=== PATIENT | male | born 1930 | race Caucasian/White ===

== ENCOUNTER → 2016-12-07 | Outpatient (CLI) | payer MEDICARE ==
--- NOTE | 2016-12-07 14:57 | RADIOLOGY REPORT (SQ) ---
EXAM DESCRIPTION: CHEST PA/LATERAL COMPLETED DATE/TIME: 12/07/2016 12:43 pm REASON FOR STUDY: COUGH COMPARISON: None. EXAM PARAMETERS: NUMBER OF VIEWS: two views TECHNIQUE: Digital Frontal and Lateral radiographic views of the chest acquired. RADIATION DOSE: NA LIMITATIONS: none FINDINGS: LUNGS AND PLEURA: No opacities, masses or pneumothorax. No pleural effusion. MEDIASTINUM AND HILAR STRUCTURES: No masses or contour abnormalities. HEART AND VASCULAR STRUCTURES: Heart normal size. No evidence for failure. BONES: No acute findings. HARDWARE: None in the chest. OTHER: No other significant finding. IMPRESSION: NO SIGNIFICANT RADIOGRAPHIC FINDING IN THE CHEST. TECHNICAL DOCUMENTATION: JOB ID: [id number] [employer]- All Rights Reserved
== END ==
LOC: OD 12:27
PROVIDERS: ATTEND Family Medicine
DX: R05 Cough (principal)
CPT/HCPCS: 71020

== ENCOUNTER → 2017-11-29 | Day surgery (SDC) | payer MEDICARE, OTHER ==
[~2017-11-29] MED LIST: BETAMET ACET/BETAMET NA INJ 6 MG/1 ML INJ PRN; BUPIVACAINE HCL 0.5 % INJ/PF 30 ML SDV ONE; LIDOCAINE 1% INJ-PF (10 MG/ML) 30 ML SDV ONE
--- NOTE | 2017-11-29 16:27 | RADIOLOGY REPORT (SQ) ---
EXAM DESCRIPTION: INJ EPI/SUBARCH/ C/T W/O CATH COMPLETED DATE/TIME: 11/29/2017 4:05 pm REASON FOR STUDY: RADICULOPATHY, LUMBAR REGION M54.16 RADICULOPATHY, LUMBAR REGION COMPARISON: Lumbar myelogram and postmyelogram CT 10/26/2017 FLUOROSCOPY TIME: 1.3 minutes 6 digital lumbar fluoroscopic images saved to PACS. TECHNIQUE: Risks and benefits of the procedure were discussed with the patient, and informed consent was obtained. After fluoroscopic localization, sterile skin prep with Betadine, and local lidocaine for skin and deep tissue anesthesia, a 25-gauge needle was used to acces the dorsal lumbar epidural s pace via left paracentral approach at the L2-3 level. At this point, 0.5 mL of Omnipaque-300 nonion ic contrast was injected to confirm needle placement in the epidural space. Subsequently, 6 mg of Ce lestone and 1 ml of dilute Marcaine was injected without complication. LIMITATIONS: None. FINDINGS: PREPROCEDURE PAIN LEVEL: 2/10. POSTPROCEDURE PAIN LEVEL: 2/10. IMPRESSION: TECHNICALLY SUCCESSFUL LUMBAR EPIDURAL STEROID INJECTION ABOVE. This is the 1st lumbar epidural steroid injection. Patient may have a 2nd injection in 2 to 3 weeks COMMENT: Patient medication list reviewed:Yes- Quality ID# [id number]:Eligible professional attests to docu menting in the medical record they obtained, updated, or reviewed the patient's current medications.. Patient felt baby aspirin for 7 days, ginkgo supplements for 7 days. Quality ID [id number]: Final reports for procedures using fluoroscopy that document radiation exposure whitley darian, or exposure time and number of fluorographic images (if radiation exposure indices are not avail able) TECHNICAL DOCUMENTATION: JOB ID: [id number] [employer]- All Rights Reserved Reading location - IP/workstation name: [email or web address]
== END ==
LOC: RAD 13:22
PROVIDERS: ATTEND Physician Assistant
DX: M54.16 Radiculopathy, lumbar region (principal)
CPT/HCPCS: 62321; J3490 ×2; J0702

== ENCOUNTER 2019-09-19 14:26 | Emergency (ER) | payer MEDICARE, OTHER ==
--- NOTE | 2019-09-19 17:45 | RADIOLOGY REPORT (SQ) ---
EXAM DESCRIPTION: CHEST SINGLE VIEW IMAGES COMPLETED DATE/TIME: 09/19/2019 4:28 pm REASON FOR STUDY: shortness of breath. COMPARISON: None. EXAM PARAMETERS: NUMBER OF VIEWS: One view. TECHNIQUE: Single frontal radiographic view of the chest acquired. RADIATION DOSE: NA LIMITATIONS: None. FINDINGS: LUNGS AND PLEURA: There are subtle peripheral opacities in both lungs. Lungs are hyperinf lated. No focal confluent consolidation. Possible small right effusion. No pneumothorax. MEDIASTINUM AND HILAR STRUCTURES: No masses. Contour normal. HEART AND VASCULAR STRUCTURES: Heart normal in size. Normal vasculature. BONES: No acute findings. HARDWARE: None in the chest. OTHER: No other significant finding. IMPRESSION: Patchy peripheral opacities may represent infectious/inflammatory process. TECHNICAL DOCUMENTATION: JOB ID: [id number] [employer]- All Rights Reserved Reading location - IP/workstation name: [email or web address]
--- NOTE | 2019-09-19 18:21 | ER Document Report ---
ED General - General Chief Complaint: Shortness Of Breath Stated Complaint: SHORT OF BREATH Time Seen by Provider: 09/19/19 17:46 Primary Care Provider: FILIBERTO HE MD [Primary Care Provider] - Follow up as needed TRAVEL OUTSIDE OF THE [place] IN LAST 30 DAYS: No - HPI Notes: Patient is a very pleasant 88-year-old male who presents to the emergency department for evaluation of difficulty breathing. He states last week he got a new exercise bike. He has been able to ride on it for an hour at a time, multiple times. He states the day after getting his exercise bike, he woke up suddenly short of breath in the middle of the night. It happened at around midnight, he has been unable to get to sleep. He really had not noticed that it happened more when he laid down, but states that it seems to be happening every night since then. He denies any chest tightness. He has a chronic cough, that he states is no different. He denies any fevers or chills. No nausea or vom iting. He is eating and drinking normally. Normal bowel movements. He denies any abdominal pain. I asked him about the edema in his legs, he states that he had not noticed. He notes that his blood pressure has also been elevated this week. He had a history of high blood pressure, but his controlled it with diet and exercise. As of late it has not been working. - Related Data Allergies/Adverse Reactions: No Known Allergies Allergy (Verified 12/15/13 09:37) Home Medications: Aspirin, multivitamin Past Medical History - General Information source: Patient - Social History Smoking Status: Former Smoker Chew tobacco use (# tins/day): No Frequency of alcohol use: None Drug Abuse: None Family History: Reviewed & Not Pertinent - Past Medical History Cardiac Medical History: Denies: Hx Coronary Artery Disease, Hx Heart Attack, Hx Hypertension Pulmonary Medical History: Denies: Hx Asthma, Hx Bronchitis, Hx COPD, Hx Pneumonia Neurological Medical History: Denies: Hx Cerebrovascular Accident, Hx Seizures Musculoskeletal Medical History: Reports Hx Arthritis - Immunizations Hx Diphtheria, Pertussis, Tetanus Vaccination: Yes Review of Systems - Review of Systems Cardiovascular: See HPI Musculoskeletal: See HPI -: Yes All other systems reviewed and negative Physical Exam - Vital signs Vitals: Temp Pulse Resp BP Pulse Ox 98.3 F 73 18 156/95 H 96 06/26/20 14:48 09/19/19 14:48 09/19/19 14:48 09/19/19 14:48 09/19/19 14:48 - Notes Notes: This is a very pleasant 88-year-old male who appears younger than his stated age, no acute distress. When sitting upright, he shows no signs of increased work of breathing or conversational dyspnea. I did lay the patient supine. His oxygenation remained stable, but his respiratory rate increased to approximately 26. No other signs of increased work of breathing besides the tachypnea. Vital signs reviewed, please refer to chart. Head is normocephalic, atraumatic. Pupils equal round, reactive to light. Neck is supple without meningismus. Heart is regular rate and rhythm. Lungs are clear to auscultation bilaterally. Abdomen is soft, nontender, normoactive bowel sounds throughout. Extremities without cyanosis, clubbing. He does have 3+ pitting edema pretibially bilaterally. Posterior calves are nontender. Peripheral pulses are equal. Skin is warm and dry. Patient is awake, alert, neurological exam is nonfocal. Course - Re-evaluation Re-evalutation: 09/19/19 18:20 Patient presents to the emergency department for evaluation. On arrival here he is mildly hypertensive, but oxygenation was good. He had a chest x-ray which was interpreted by radiology as showing multi focal areas that could be consistent with a pneumonia. His clinical presentation, however, is not entir macy consistent with that. He already has a COVID test pending at this time. I am more concerned about the possibility of congestive heart failure in this 88-year-old male with orthopnea and PND. I did order congestive heart failure work-up. Patient is amenable to this plan. He is stable, we will continue to monitor. 09/19/19 20:22 Patient's clinical findings and work-up here do suggest congestive heart failure, new onset. His chest x-ray interpretation does not clinically make sense of his picture. I do not suspect pneumonia. I do not believe this patient warrants admission to the hospital at this time. His troponin is negative. He has no ST elevation, no chest pain. He is vitally stable. I spoke with Dr. Mohamud, on-call job service consultant. He agrees with my assessment. He asked that the patient be diuresed with IV Lasix here, started on oral Lasix and potassium, and have him follow-up in the office on Sunday morning. The patient is amenable to this plan as well. He received oral potassium and IV Lasix here, will discharge him home with same. He is to return to the ED with worsening or new concerning symptoms of any sort. - Vital Signs Vital signs: Temp Pulse Resp BP Pulse Ox 98.3 F 73 18 156/95 H 96 09/19/19 16:11 09/19/19 14:48 09/19/19 14:48 09/19/19 14:48 09/19/19 14:48 - Laboratory Result Diagrams: 09/19/19 18:42 09/19/19 18:42 Laboratory results interpreted by me: 09/19/19 09/19/19 09/19/19 18:42 18:42 18:42 RBC 3.87 L Hgb 12.1 L Hct 36.0 L Potassium 3.1 L Glucose 116 H NT-Pro-B Natriuret Pep 1250 H - Diagnostic Test Radiology reviewed: Image reviewed, Reports reviewed Radiology results interpreted by me: 09/19/19 20:24 Chest X-Ray 09/19/19 00:00 IMPRESSION: Patchy peripheral opacities may represent infectious/inflammatory process. - EKG Interpretation by Me Additional EKG results interpreted by me: 09/19/19 20:24 Sinus rhythm with supraventricular bigeminy. Normal axis and intervals. Nonspecific ST changes, but no acute changes concerning for ischemia or infarction. No old studies immediately available for comparison. Discharge - Discharge Clinical Impression: New onset of congestive heart failure, Hypokalemia Condition: Stable Disposition: HOME, SELF-CARE Instructions: Congestive Heart Failure ([facility]), Hypokalemia ([facility]) Additional Instructions: Your findings today are most consistent with new congestive heart failure. You have been given a medication called Lasix, which will help you urinate extra fluid. Please start Lasix and potassium tomorrow as prescribed. Follow-up with Dr. Mohamud on Sunday. Please report to his office in the morning to be seen. If you develop chest pain, increased difficulty breathing, fevers, vomiting, or any other new or concerning symptoms, please return immediately to the emergency department for reevaluation. Referrals: FILIBERTO HE MD [Primary Care Provider] - Follow up as needed LASHON MOHAMUD MD [ACTIVE STAFF] - Follow up as needed
[2019-09-19 19:04] LABS: ABSOLUTE EOSINOPHILS # (AUTO) 0.2 10^3/uL (0.0-0.6); ABSOLUTE LYMPHOCYTES (AUTO) 1.7 10^3/uL (0.5-4.7); ABSOLUTE MONOCYTES (AUTO) 0.6 10^3/uL (0.1-1.4); ABSOLUTE NEUT (AUTO) 3.1 10^3/uL (1.7-8.2); BASOPHILS % (AUTO) 0.7 % (0-2); EOSINOPHILS % (AUTO) 2.9 % (0-6); HEMOGLOBIN 12.1 g/dL (13.5-17.0); LYMPHOCYTES % (AUTO) 30.2 % (13-45); MEAN CORPUSCULAR HEMOGLOBIN 31.3 pg (27.0-33.4); MEAN CORPUSCULAR HGB CONC 33.6 g/dL (32.0-36.0); MEAN CORPUSCULAR VOLUME 93 fl (80-97); PLATELET COUNT 200 10^3/uL (150-450); RED BLOOD COUNT 3.87 10^6/uL (4.35-5.55); RED CELL DISTRIBUTION WIDTH 13.8 % (11.5-14.0); SEGMENTED NEUTROPHILS % (AUTO) 56.2 % (42-78); TOTAL CELLS COUNTED % (AUTO) 100 %; WHITE BLOOD COUNT 5.6 10^3/uL (4.0-10.5)
[2019-09-19 19:18] LABS: ALBUMIN 3.9 g/dL (3.5-5.0); ALKALINE PHOSPHATASE 63 U/L (38-126); ANION GAP 7 (5-19); ASPARTATE AMINO TRANSFERASE 37 U/L (17-59); BILIRUBIN,TOTAL 0.5 mg/dL (0.2-1.3); BLOOD UREA NITROGEN 17 mg/dL (7-20); CALCIUM 9.3 mg/dL (8.4-10.2); CARBON DIOXIDE 29 mmol/L (22-30); CHLORIDE 104 mmol/L (98-107); GLUCOSE 116 mg/dL (75-110); POTASSIUM 3.1 mmol/L (3.6-5.0); TOTAL PROTEIN 7.1 g/dL (6.3-8.2)
[2019-09-19 19:30] LABS: TROPONIN I 0.031 ng/mL
--- NOTE | 2019-09-19 19:33 | EKG REPORT ---
SEVERITY:- ABNORMAL ECG - SINUS RHYTHM SUPRAVENTRICULAR BIGEMINY CONSIDER POSTERIOR INFARCT NONSPECIFIC T ABNORMALITIES, INFERIOR LEADS : Confirmed by: Yumiko Cobb 19-Sep-2019 19:33:05
[2019-09-19] MEDS ORDERED: POTASSIUM CHLORIDE 10 MEQ TABLET.ER PO ONE (19:59)
[2019-09-19] MEDS ORDERED: FUROSEMIDE INJ/PF 20 MG/2 ML SDV IV ONE (20:12)
[2019-09-19 20:46] VITALS: BP 149/69
== END 2019-09-19 20:45 | disposition home or self-care (01) ==
LOC: ER 14:26
DX: I11.0 Hypertensive heart disease with heart failure (principal); I50.9 Heart failure, unspecified; E87.6 Hypokalemia; R05 Cough; Z87.891 Personal history of nicotine dependence; Z79.82 Long term (current) use of aspirin; Z79.899 Other long term (current) drug therapy
CPT/HCPCS: 93005; 99285; 96374; 36415; 85025; 80053; 84484; 83880; 71045; 93010; J1940; A9270

== ENCOUNTER → 2019-09-30 | Outpatient (CLI) | payer MEDICARE, OTHER ==
--- NOTE | 2019-09-30 19:34 | XCELERA REPORT ---
[address] [address] Transthoracic Echocardiogram Report Name: GIANLUCA BURKS Age: 88 yrs Gender: Male : 1930 Patient Status: Outpatient Patient Location: Study Date: 09/30/2019 01:17 PM History: CHF Height: 74 in Weight: 210 lb BSA: 2.2 m2 Procedure: A complete two-dimensional transthoracic echocardiogram was performed (2D, M-mode, spectral and color flow Doppler). The study was technically difficult with many images being suboptimal in quality. Reason For Study: CHF Ordering Physician: LASHON MOHAMUD Performed By: Ashvin Sexton Interpretation Summary Left ventricular systolic function is normal. The Ejection Fraction estimate is 55-60% The right ventricle is normal in size and function. There is a trace amount of mitral regurgitation There is no aortic valve stenosis There is a mild amount of aortic regurgitation There is a trace amount of tricuspid regurgitation There is mild pulmonary hypertension by echo MMode/2D Measurements & Calculations RVDd: 4.0 cm LVIDd: 5.6 cm FS: 39.4 % Ao root diam: 4.0 cm IVSd: 0.87 cm LVIDs: 3.4 cm EDV(Teich): 156.5 ml Ao root area: 12.4 cm2 LVPWd: 0.94 cm ESV(Teich): 48.2 ml LA dimension: 4.4 cm EF(Teich): 69.2 % Doppler Measurements & Calculations MV E max juan f: MV P1/2t max juan f: Ao V2 max: AI max juan f: 81.8 cm/sec 100.6 cm/sec 154.2 cm/sec 468.7 cm/sec MV A max juan f: MV P1/2t: 87.6 msec Ao max PG: AI max P.6 cm/sec MVA(P1/2t): 2.5 cm2 9.5 mmHg 87.9 mmHg MV E/A: 2.0 MV dec slope: AI dec slope: 308.7 cm/sec2 336.2 cm/sec2 AI P1/2t: MV dec time: 0.21 sec 444.7 msec LV V1 max PG: PA V2 max: PI end-d juan f: TR max juan f: 3.2 mmHg 74.5 cm/sec 120.7 cm/sec 255.2 cm/sec LV V1 max: PA max P.2 mmHg TR max P.5 cm/sec 26.0 mmHg LV dP/dt: 1298 mmHg/s AV P1/2t-pr_phl: MV P1/2t-pr_phl: 444.7 msec 87.6 msec Left Ventricle The left ventricle is mildly dilated. There is normal left ventricular wall thickness. Left ventricular systolic function is normal. The Ejection Fraction estimate is 55-60%. Doppler measurements suggest pseudonormalized left ventricular relaxation, which is associated with grade II/IV or mild to moderate diastolic dysfunction. No regional wall motion abnormalities noted. Right Ventricle The right ventricle is normal in size and function. Atria The right atrium is normal. The left atrium is mildly dilated. Mitral Valve Calcified mitral apparatus. There is a trace amount of mitral regurgitation. Aortic Valve The aortic valve is moderately calcified. The aortic valve is sclerotic and shows some degree of functional abnormality. There is no aortic valve stenosis. There is a mild amount of aortic regurgitation. Tricuspid Valve The tricuspid valve is normal in structure and function. There is a trace amount of tricuspid regurgitation. Right ventricular systolic pressure is estimated to be elevated at 30-40mmHg. There is mild pulmonary hypertension by echo. Pulmonic Valve The pulmonic valve is not well visualized. There is a trace amount of pulmonic regurgitation. Great Vessels The aortic root is mildly dilated. Effusions There is no pericardial effusion. : LASHON MOHAMUD Anil
== END ==
LOC: SP 12:46
PROVIDERS: ATTEND Internal Medicine
DX: I50.9 Heart failure, unspecified (principal)
CPT/HCPCS: 93306